=== PATIENT | male | born 1945 | race Caucasian/White ===

== ENCOUNTER 2024-07-30 12:44 | Outpatient (CLI) | payer MEDICARE, BC, SELFPAY ==
[2024-08-03 01:03] LABS: Albumin 4.06 g/dL (3.75-5.01); Alpha 2 Globulin 0.67 g/dL (0.48-1.05); Immunofixation IFE Done; Immunoglobulin A 137 mg/dL (68-408); Immunoglobulin G 668 mg/dL (768-1632); Immunoglobulin M 58 mg/dL (35-263); Lambda Qnt Free Light Chains 9.39 mg/L (5.71-26.30); Total Protein, Serum 6.4 g/dL (6.3-8.2)
== END 2024-07-30 12:45 | disposition home or self-care (01) ==
LOC: LAB 12:47
PROVIDERS: PCP Surgery; Visit Provider Internal Medicine Hematology & Oncology
DX: D64.9 Anemia, unspecified (principal)
CPT/HCPCS: 36415; 82784; 83520; 84155; 84165; 86334